=== PATIENT | female | born 2000 | race Caucasian/White ===

== ENCOUNTER 2021-08-22 16:54 | Emergency (ER) | payer OTHER, SELFPAY ==
[~2021-08-22] VITALS: Ht 160 cm; Wt 84.5 kg
[2021-08-22] MEDS ORDERED: MULTTAB20 PO (17:02)
[2021-08-22 18:30] LABS: BASO % 0.2 % (0.0-1.0); EOS # 0.1 10^3/uL (0.0-0.5); EOS % 1.1 % (0.0-3.0); HEMATOCRIT 34.4 % (36.0-47.0); HEMOGLOBIN 11.6 g/dl (12.0-15.5); LYMPH # 1.9 10^3/uL (1.5-5.0); LYMPH % 23.1 % (24.0-44.0); MEAN CORPUSCULAR HEMOGLOBIN 30.3 pg (27.0-33.0); MEAN CORPUSCULAR HGB CONC 33.7 g/dl (32.0-36.5); MEAN CORPUSCULAR VOLUME 89.8 fl (80.0-96.0); MONO # 0.6 10^3/uL (0.0-0.8); MONO % 7.3 % (2.0-8.0); NEUTROPHILS # 5.6 10^3/uL (1.5-8.5); NEUTROPHILS % 67.9 % (36.0-66.0); PLATELET COUNT, AUTOMATED 222 10^3/uL (150-450); RED BLOOD COUNT 3.83 10^6/uL (4.00-5.40); WHITE BLOOD COUNT 8.2 10^3/uL (4.0-10.0)
--- NOTE | 2021-08-22 21:23 | REPVR ---
PROCEDURE INFORMATION: Exam: US First Trimester, Transabdominal Exam date and time: 08/22/2021 8:23 PM Age: 20 years old Clinical indication: Lmp or gestational age (in weeks): 11w 0d; Other: Vaginal bleeding; ; Additional info: 11 weeks vaginal bleeding TECHNIQUE: Imaging protocol: Real-time transabdominal obstetrical ultrasound of the maternal pelvis and a first trimester , less than 14 weeks 0 days, with image documentation. COMPARISON: No relevant prior studies available. FINDINGS: Gestation: Single Intrauterine gestation. Embryonic/ heart rate: 167 bpm. Extra-embryonic membranes/Placenta: Posterior with Placenta previa. Amniotic fluid: Amniotic fluid/chorionic fluid is normal for gestational age. BIOMETRY: pole with crown-rump length measurement of 085 cm for a menstrual age of 11 weeks. Gestational sac measures 6.3 x 4.1 by 7 0.02 cm for a mean sac diameter 5.8 cm for menstrual age of 11 weeks and 0 days.' MATERNAL: Uterus: Uterus measures 11.3 x 7.1 x 9.2 cm. Cervix: 3.2 cm in length. Fluid present in the endocervical canal.. . Intraperitoneal space: No intraperitoneal free fluid. IMPRESSION: 1. Single live intrauterine with estimated menstrual age 11 weeks and 0 days. Expected date of delivery 1022. Electronically signed by: Soha Gonzalez On 08/22/2021 21:23:18 PM
[2021-08-22] MEDS ORDERED: FLAG500T PO (22:41)
[2021-08-22 22:55] VITALS: BP 113/54
[2021-08-22 23:20] LABS: GC DNA AMPLIFICATION NEGATIVE (NEGATIVE)
== END 2021-08-22 22:57 | disposition home or self-care (01) ==
LOC: M ED 16:54
DX: O23.591 Infection of other part of genital tract in pregnancy, first trimester (principal); Z32.01 Encounter for pregnancy test, result positive; Z86.19 Personal history of other infectious and parasitic diseases; O99.841 Bariatric surgery status complicating pregnancy, first trimester; Z87.891 Personal history of nicotine dependence; Z3A.11 11 weeks gestation of pregnancy; Z91.018 Allergy to other foods

== ENCOUNTER 2021-11-07 07:43 | Emergency (ER) | payer OTHER, SELFPAY ==
[~2021-11-07] VITALS: Ht 160 cm; Wt 90.9 kg
[~2021-11-07 07:43] MED LIST: FLAG500T PO; MULTTAB20 PO
[2021-11-07 07:45] VITALS: BP 116/64
[2021-11-07] MEDS ORDERED: ACETAMINOPHEN TAB 650MG DOSE (2X325MG) PO ONE (12:25)
[2021-11-07] MEDS ORDERED: ALBUTEROL 90 MCG/ACT 8GM HFA INHALER INH ONE (13:00)
[2021-11-07 14:13] LABS: BASO % 0.1 % (0.0-1.0); EOS % 0.1 % (0.0-3.0); HEMATOCRIT 32.6 % (36.0-47.0); HEMOGLOBIN 10.9 g/dl (12.0-15.5); LYMPH # 0.7 10^3/uL (1.5-5.0); LYMPH % 7.7 % (24.0-44.0); MEAN CORPUSCULAR HEMOGLOBIN 30.7 pg (27.0-33.0); MEAN CORPUSCULAR HGB CONC 33.4 g/dl (32.0-36.5); MEAN CORPUSCULAR VOLUME 91.8 fl (80.0-96.0); MONO # 0.4 10^3/uL (0.0-0.8); MONO % 4.3 % (2.0-8.0); NEUTROPHILS # 7.6 10^3/uL (1.5-8.5); NEUTROPHILS % 87.6 % (36.0-66.0); PLATELET COUNT, AUTOMATED 159 10^3/uL (150-450); RED BLOOD COUNT 3.55 10^6/uL (4.00-5.40); WHITE BLOOD COUNT 8.7 10^3/uL (4.0-10.0)
[2021-11-07 14:38] LABS: ALBUMIN 2.6 GM/DL (3.2-5.2); ALT/SGPT 30 U/L (12-78); BILIRUBIN,TOTAL 0.9 MG/DL (0.2-1.0); BLOOD UREA NITROGEN 6 MG/DL (7-18); CALCIUM LEVEL 8.2 MG/DL (8.5-10.1); CARBON DIOXIDE LEVEL 23 MEQ/L (21-32); CHLORIDE LEVEL 105 MEQ/L (98-107); CREATININE FOR GFR 0.58 MG/DL (0.55-1.30); GLOMERULAR FILTRATION RATE > 60.0 (>60); GLUCOSE, FASTING 107 MG/DL (70-100); POTASSIUM SERUM 3.7 MEQ/L (3.5-5.1); SODIUM LEVEL 137 MEQ/L (136-145); TOTAL PROTEIN 6.5 GM/DL (6.4-8.2)
[2021-11-07 14:50] LABS: APPEARANCE, URINE HAZY (CLEAR); BACTERIA, URINE AUTO NEGATIVE (NEGATIVE); BILIRUBIN, URINE AUTO NEGATIVE (NEGATIVE); BLOOD, URINE BLOOD NEGATIVE (NEGATIVE); COLOR, URINE YELLOW (YELLOW); GLUCOSE, URINE (UA) AUTO NEGATIVE (NEGATIVE); KETONE, URINE AUTO 2+ mg/dL (NEGATIVE); LEUKOCYTE ESTERASE, URINE AUTO NEGATIVE (NEGATIVE); NITRITE, URINE AUTO NEGATIVE (NEGATIVE); PROTEIN, URINE AUTO NEGATIVE (NEGATIVE); RBC, URINE AUTO 0 /HPF (0-3); SPECIFIC GRAVITY URINE AUTO 1.014 (1.002-1.035); SQUAMOUS EPITHELIAL CELL UR AU 8 /HPF (0-6); WBC, URINE AUTO 3 /HPF (0-3)
[2021-11-07] MEDS ORDERED: ZITHTAB PO (15:39)
[2021-11-07] MEDS ORDERED: VENTAER INH (15:39)
[2021-11-07] MEDS ORDERED: OSEL75CA PO (15:39)
== END 2021-11-07 16:30 | disposition home or self-care (01) ==
LOC: M ED 07:43
DX: O98.512 Other viral diseases complicating pregnancy, second trimester (principal); O99.512 Diseases of the respiratory system complicating pregnancy, second trimester; Z79.899 Other long term (current) drug therapy; Z91.018 Allergy to other foods

== ENCOUNTER 2021-12-29 15:51 | Outpatient (CLI) | payer OTHER ==
[~2021-12-29] VITALS: Ht 160 cm; Wt 94.4 kg
[~2021-12-29 15:51] MED LIST changes: +OSEL75CA PO; +VENTAER INH; +ZITHTAB PO
[2021-12-29 16:12] VITALS: BP 112/61
[2021-12-29] MEDS ORDERED: ACET325C5 PO (17:00)
[2021-12-29 17:18] LABS: HEMATOCRIT 32.4 % (36.0-47.0); HEMOGLOBIN 10.4 g/dl (12.0-15.5); MEAN CORPUSCULAR HEMOGLOBIN 29.1 pg (27.0-33.0); MEAN CORPUSCULAR HGB CONC 32.1 g/dl (32.0-36.5); MEAN CORPUSCULAR VOLUME 90.5 fl (80.0-96.0); PLATELET COUNT, AUTOMATED 216 10^3/uL (150-450); RED BLOOD COUNT 3.58 10^6/uL (4.00-5.40)
== END 2021-12-29 18:00 | disposition home or self-care (01) ==
LOC: M LDO 15:51
PROVIDERS: ATTEND Obstetrics & Gynecology
DX: O9A.213 Injury, poisoning and certain other consequences of external causes complicating pregnancy, third trimester (principal); S30.1XXA Contusion of abdominal wall, initial encounter; W01.0XXA Fall on same level from slipping, tripping and stumbling without subsequent striking against object, initial encounter; Y92.9 Unspecified place or not applicable; O99.843 Bariatric surgery status complicating pregnancy, third trimester; O98.513 Other viral diseases complicating pregnancy, third trimester; U07.1 COVID-19; O99.343 Other mental disorders complicating pregnancy, third trimester; F41.9 Anxiety disorder, unspecified; Z91.018 Allergy to other foods
CPT/HCPCS: 36415; 59025; 85027; 85460; G0378; G0463

== ENCOUNTER 2022-01-01 17:25 | Outpatient (CLI) | payer OTHER ==
[~2022-01-01] VITALS: Ht 160 cm; Wt 93.6 kg
[~2022-01-01 17:25] MED LIST changes: +ACET325C5 PO
[2022-01-01] MEDS ORDERED: ONDANSETRON 4MG/2ML VIAL IV ONE (17:45)
[2022-01-01] MEDS ORDERED: LR 500 ML IV ONE (17:45)
[2022-01-01] MEDS ORDERED: ONDANSETRON 4MG/2ML VIAL IV PRN (17:45)
[2022-01-01 18:05] VITALS: BP 118/56
[2022-01-01] MEDS ORDERED: FERR325T3 PO (18:22)
[2022-01-01] MEDS ORDERED: ONDA4TAB6 PO (18:22)
[2022-01-01] MEDS ORDERED: VITA100T59 PO (18:22)
[2022-01-01] MEDS ORDERED: VITA250T26 PO (18:22)
[2022-01-01] MEDS ORDERED: HOME MED LIST COMPLETE! XX SCH (18:25)
[2022-01-01 19:15] VITALS: BP 122/72
[2022-01-01 20:20] LABS: APPEARANCE, URINE HAZY (CLEAR); BILIRUBIN, URINE AUTO NEGATIVE (NEGATIVE); COLOR, URINE YELLOW (YELLOW); GLUCOSE, URINE (UA) AUTO 1+ mg/dL (NEGATIVE); KETONE, URINE AUTO 2+ mg/dL (NEGATIVE); NITRITE, URINE AUTO NEGATIVE (NEGATIVE); PROTEIN, URINE AUTO 1+ mg/dL (NEGATIVE); SPECIFIC GRAVITY URINE AUTO 1.029 (1.002-1.035)
[2022-01-01 20:21] LABS: BLOOD, URINE BLOOD NEGATIVE (NEGATIVE); LEUKOCYTE ESTERASE, URINE AUTO NEGATIVE (NEGATIVE)
[2022-01-01 20:22] LABS: BACTERIA, URINE AUTO NEGATIVE (NEGATIVE); MUCUS, URINE SMALL (NEGATIVE); RBC, URINE AUTO 0 /HPF (0-3); SQUAMOUS EPITHELIAL CELL UR AU 8 /HPF (0-6); WBC, URINE AUTO 1 /HPF (0-3)
[2022-01-01 20:40] VITALS: BP 132/69
[2022-01-01] MEDS ORDERED: LOMOTIL 2.5MG/0.025MG TABLET PO ONE (21:20)
[2022-01-01] MEDS ORDERED: ONDANSETRON 4 MG TAB PO PRN (21:25)
[2022-01-01] MEDS ORDERED: LOMO2.5T PO (21:27)
[2022-01-01] MEDS ORDERED: LOPE1CAP5 PO (21:34)
[2022-01-01 22:24] VITALS: BP 125/57
[2022-01-02] MEDS ORDERED: LOMOTIL 2.5MG/0.025MG TABLET PO SCH (09:00)
== END 2022-01-01 22:32 | disposition home or self-care (01) ==
LOC: M LDO 17:25
PROVIDERS: ATTEND Obstetrics & Gynecology
DX: O21.8 Other vomiting complicating pregnancy (principal); Z3A.30 30 weeks gestation of pregnancy; O26.893 Other specified pregnancy related conditions, third trimester; R19.7 Diarrhea, unspecified; Z91.018 Allergy to other foods
CPT/HCPCS: 59025; 81001; G0378; G0463; J2405

== ENCOUNTER 2022-02-13 22:19 | Outpatient (CLI) | payer OTHER ==
[~2022-02-13] VITALS: Ht 160 cm; Wt 97.7 kg
[~2022-02-13 22:19] MED LIST changes: +FERR325T3 PO; +LOMO2.5T PO; +LOPE1CAP5 PO; +ONDA4TAB6 PO; +VITA100T59 PO; +VITA250T26 PO
[2022-02-14 00:15] LABS: HEMOGLOBIN 9.4 g/dl (12.0-15.5); MEAN CORPUSCULAR HEMOGLOBIN 26.8 pg (27.0-33.0); MEAN CORPUSCULAR HGB CONC 32.4 g/dl (32.0-36.5); MEAN CORPUSCULAR VOLUME 82.6 fl (80.0-96.0); PLATELET COUNT, AUTOMATED 227 10^3/uL (150-450); RED BLOOD COUNT 3.51 10^6/uL (4.00-5.40); WHITE BLOOD COUNT 8.2 10^3/uL (4.0-10.0)
[2022-02-14 00:20] LABS: INR 0.92; PROTHROMBIN TIME 12.8 SECONDS (12.7-14.5)
[2022-02-14 00:21] LABS: PARTIAL THROMBOPLASTIN TIME 25.2 SECONDS (25.9-37.0)
[2022-02-14] MEDS ORDERED: CALCIUM CARBONATE 500 MG CHEW U/D PO ONE (00:50)
[2022-02-14 00:55] VITALS: BP 131/80
[2022-02-14 03:27] VITALS: BP 124/78
== END 2022-02-14 03:29 | disposition home or self-care (01) ==
LOC: M LDO 22:19
PROVIDERS: ATTEND Obstetrics & Gynecology
DX: O9A.213 Injury, poisoning and certain other consequences of external causes complicating pregnancy, third trimester (principal); S36.32XA Contusion of stomach, initial encounter; W01.0XXA Fall on same level from slipping, tripping and stumbling without subsequent striking against object, initial encounter; Y92.009 Unspecified place in unspecified non-institutional (private) residence as the place of occurrence of the external cause; Z3A.36 36 weeks gestation of pregnancy; Z91.018 Allergy to other foods
CPT/HCPCS: 36415; 59025; 76815; 85027; 85384; 85610; 85730; 86850; 86900; 86901; G0378; G0463

== ENCOUNTER 2022-02-17 02:17 | Inpatient (IN) | payer OTHER ==
[~2022-02-17] VITALS: Ht 160 cm; Wt 98.2 kg
[2022-02-17] VITALS (47 sets, daily range): BP systolic 100–147; BP diastolic 56–89
[2022-02-17] MEDS ORDERED: TUMS500C PO (02:39)
[2022-02-17] MEDS ORDERED: ACETAMINOPHEN TAB 650MG DOSE (2X325MG) PO PRN ×2 (03:20→22:55)
[2022-02-17] MEDS ORDERED: PENICILLIN G POTASSIUM IV 5 MU in D5W MINI-BAG PLUS 100 ML IV ONE (03:20)
[2022-02-17] MEDS ORDERED: OXYTOCIN DRIP 30 UNITS in IV 1 EA IV PRN ×4 (03:20)
[2022-02-17] MEDS ORDERED: TRANEXAMIC ACID INJection 1,000 MG in NS 100 ML IV PRN (03:20)
[2022-02-17] MEDS ORDERED: CARBOPROST TROMETHAMINE 250 MCG/ML AMP IM PRN (03:20)
[2022-02-17] MEDS ORDERED: BETAMETHASONE SOLUSPAN 6MG/ML 5ML VIAL (J0702 PER 3MG) IM SCH (03:20)
[2022-02-17] MEDS ORDERED: LIDOCAINE 1% MDV 20ML VIAL INFIL PRN (03:20)
[2022-02-17] MEDS ORDERED: METHYLERGONOVINE MALEATE 0.2 MG/ML VIAL (J2210) IM PRN (03:20)
[2022-02-17] MEDS ORDERED: ONDANSETRON 4MG/2ML VIAL IV PRN ×3 (03:20→22:55)
[2022-02-17] MEDS ORDERED: OXYTOCIN 30 UNITS IN 0.9% NaCl 500ML IV BAG (J2590) As Ordered ONE (03:31)
[2022-02-17 03:58] LABS: BASO % 0.2 % (0.0-1.0); EOS # 0.1 10^3/uL (0.0-0.5); EOS % 0.7 % (0.0-3.0); HEMATOCRIT 35.4 % (36.0-47.0); HEMOGLOBIN 11.5 g/dl (12.0-15.5); LYMPH # 1.8 10^3/uL (1.5-5.0); LYMPH % 18.4 % (24.0-44.0); MEAN CORPUSCULAR HEMOGLOBIN 26.4 pg (27.0-33.0); MEAN CORPUSCULAR HGB CONC 32.5 g/dl (32.0-36.5); MEAN CORPUSCULAR VOLUME 81.2 fl (80.0-96.0); MONO # 0.6 10^3/uL (0.0-0.8); MONO % 5.7 % (2.0-8.0); NEUTROPHILS # 7.5 10^3/uL (1.5-8.5); NEUTROPHILS % 74.5 % (36.0-66.0); PLATELET COUNT, AUTOMATED 243 10^3/uL (150-450); RED BLOOD COUNT 4.36 10^6/uL (4.00-5.40)
[2022-02-17] MEDS: LR 1,000 ML IV SCH ×4 (04:00→10:14)
[2022-02-17] MEDS ORDERED: FENTANYL 2MCG/ML ROPIVACAINE 0.2% IN 0.9% NACL 100ML IVBAG As Ordered ONE (04:34)
[2022-02-17] MEDS ORDERED: NALOXONE INJ 0.4MG/1ML VIAL (J2310 PER 1MG) IV PRN (04:43)
[2022-02-17] MEDS ORDERED: EPIDURAL/PCA KEYS XX PRN (04:43)
[2022-02-17] MEDS ORDERED: LACTATED RINGER'S 1000 ML IV PRN (04:43)
[2022-02-17] MEDS ORDERED: ePHEDrine SULFATE 25 MG/5 ML(5MG/ML) SYRINGE IV PRN (04:43)
[2022-02-17] MEDS ORDERED: EPIDURAL COMMENT XX SCH (04:43)
[2022-02-17] MEDS ORDERED: diphenhydrAMINE 50MG/ML VIAL (J1200) IV PRN (04:43)
[2022-02-17] MEDS ORDERED: REFRIGERATOR IV KEYS XX PRN (04:43)
[2022-02-17] MEDS: FENTANYL/ROPIVACAINE/NACL BAG 100 ML EPIDURAL SCH ×2 (05:46→14:57)
[2022-02-17] MEDS ORDERED: CALCIUM CARBONATE 500 MG CHEW U/D PO ONE (06:50)
[2022-02-17] MEDS: FAMOTIDINE IV BAG 20 MG in IV 1 EA IV SCH ×2 (07:12→18:02)
[2022-02-17] MEDS: PENICILLIN G POTASSIUM IV 2.5 MU in IV 1 EA IV SCH ×4 (07:44→19:58)
[2022-02-17] MEDS ORDERED: OXYTOCIN DRIP 30 UNITS in IV 1 EA IV SCH (10:00)
[2022-02-17] MEDS ORDERED: diphenhydrAMINE 50MG/ML VIAL (J1200) IV ONE (22:40)
[2022-02-17] MEDS ORDERED: MEASLES,MUMPS,RUBELLA VACCINE INJ (MMR-II) (90707) SC SCH (22:55)
[2022-02-17] MEDS ORDERED: ACETAMINOPHEN 500 MG TAB PO PRN (22:55)
[2022-02-17] MEDS ORDERED: RHOGAM 300 MCG (1500 IU) INJ (J2790) IM SCH (22:55)
[2022-02-17] MEDS ORDERED: ANUSOL HC CREAM 30GM TOP PRN (22:55)
[2022-02-17] MEDS ORDERED: DIBUCAINE 1% OINTMENT 30GM TOP PRN (22:55)
[2022-02-17] MEDS ORDERED: IBUPROFEN 600MG TAB PO PRN (22:55)
[2022-02-17] MEDS ORDERED: METHYLERGONOVINE MALEATE 0.2 MG TAB PO PRN (22:55)
[2022-02-18 00:15] VITALS: BP 132/66
[2022-02-18 01:00] VITALS: BP 128/75
[2022-02-18 06:03] VITALS: BP 118/56
[2022-02-18] MEDS: PRENATAL VITAMINS CHEWABLE TABLET PO SCH (08:15)
[2022-02-18] MEDS: DOCUSATE SODIUM 100MG CAPSULE PO SCH ×2 (08:15→20:03)
[2022-02-18] MEDS: IBUPROFEN 800 MG TAB PO PRN (08:16)
[2022-02-18] MEDS ORDERED: INFLUENZA QUADRIVALENT PF VACCINE 0.5ML SYRINGE IM ONE (12:00)
[2022-02-18 18:05] VITALS: BP 121/59
[2022-02-19] MEDS: IBUPROFEN 800 MG TAB PO PRN (02:03)
[2022-02-19] MEDS ORDERED: ACET1TAB55 PO (05:58)
[2022-02-19] MEDS ORDERED: COLA100C5 PO (05:58)
[2022-02-19] MEDS ORDERED: IBUP80TA PO (05:58)
[2022-02-19 06:00] VITALS: BP 136/78
[2022-02-19] MEDS: DOCUSATE SODIUM 100MG CAPSULE PO SCH (09:03)
[2022-02-19] MEDS: PRENATAL VITAMINS CHEWABLE TABLET PO SCH (09:03)
== END 2022-02-19 11:40 | disposition home or self-care (01) | DRG 807 ==
LOC: M LDO 02:17 → M LDI 03:09 → M OBS 02-18 00:55
PROVIDERS: ADMIT Obstetrics & Gynecology; ATTEND Obstetrics & Gynecology
PROC: 10E0XZZ Delivery of Products of Conception, External Approach (ICD-10-PCS; principal; 2022-02-17)
PROC: 0HQ9XZZ Repair Perineum Skin, External Approach (ICD-10-PCS; 2022-02-17)
PROC: 10907ZC Drainage of Amniotic Fluid, Therapeutic from Products of Conception, Via Natural or Artificial Opening (ICD-10-PCS; 2022-02-17)
DX: O60.14X0 Preterm labor third trimester with preterm delivery third trimester, not applicable or unspecified (principal); Z37.0 Single live birth; Z3A.36 36 weeks gestation of pregnancy; O99.844 Bariatric surgery status complicating childbirth; O99.824 Streptococcus B carrier state complicating childbirth; Z86.16 Personal history of COVID-19; O76 Abnormality in fetal heart rate and rhythm complicating labor and delivery; O64.5XX0 Obstructed labor due to compound presentation, not applicable or unspecified; O70.0 First degree perineal laceration during delivery